=== PATIENT | female | born 1990 ===

== ENCOUNTER 2017-07-19 10:08 | Inpatient (IN) ==
[2017-07-19] MEDS ORDERED: MEPERIDINE 50 MG/1 ML VIAL IM PRN (10:42)
[2017-07-19] MEDS ORDERED: ONDANSETRON 4 MG/2 ML VIAL IV PRN ×2 (10:42→12:41)
[2017-07-19] MEDS ORDERED: LACTATED RINGERS 500 ML IV PRN (10:42)
[2017-07-19] MEDS ORDERED: BUTORPHANOL 1 MG/ML VIAL IV PRN (10:42)
[2017-07-19] MEDS ORDERED: LACTATED RINGERS 1,000 ML IV SCH (11:00)
[2017-07-19] MEDS ORDERED: OXYTOCIN/LR 20 UNIT/1,000 ML BAG IV SCH (11:00)
[2017-07-19 11:14] LABS: Basophils % 0.3 % (0.0-0.8); Eosinophils % 0.1 % (0.00-10.9); Hematocrit 37.6 VOL% (35.7-47.0); Hemoglobin 12.7 GM/DL (12.0-16.0); Immature Granulocytes % 0.5 %; Immature Granulocytes Absolute 0.05 #; Lymphocytes # 1.8 10*3/uL (1.4-4.0); Lymphocytes % 17.7 % (21.3-54.2); Mean Corpuscular HGB Conc 33.8 GM/DL (32-36); Mean Corpuscular Hemoglobin 32 PG (27-34); Mean Platelet Volume 10.9 FL (9.6-12.0); Monocytes # 0.5 10*3/uL (0.11-0.8); Monocytes % 4.8 % (1.7-12.7); Neutrophils # 7.8 10*3/uL (1.4-7.4); Neutrophils % 76.6 % (38.7-73.9); Platelet Count 247 T/CUMM (130-400); Red Cell Distribution Width 14.5 % (9.3-17.3); White Blood Count 10.1 T/CUMM (4-12)
[2017-07-19] MEDS ORDERED: miSOPROStol 200 MCG TABLET ONE (11:55)
[2017-07-19] MEDS ORDERED: IBUPROFEN 800 MG TABLET PO PRN (12:41)
[2017-07-19] MEDS ORDERED: OXYTOCIN/LR 20 UNIT/1,000 ML BAG IV ONE (12:41)
[2017-07-19] MEDS ORDERED: RHO(D) IMMUNE GLOBULIN 300 MCG SYRINGE IM ONE (12:41)
[2017-07-19] MEDS ORDERED: BISACODYL 10 MG SUPP RECTAL PRN (12:41)
[2017-07-19] MEDS ORDERED: HYDROCORTISONE 2.5% RECTAL CREAM 30 GM TUBE TOP PRN (12:41)
[2017-07-19] MEDS ORDERED: MEASLES/MUMPS/RUBELLA VACCINE 0.5 ML VIAL SUBCUT ONE (12:41)
[2017-07-19] MEDS ORDERED: ACETAMINOPHEN 325 MG TABLET PO PRN (12:41)
[2017-07-19] MEDS ORDERED: DIPH/TET/ACEL PERT BOOSTER VACCINE 0.5 ML VIAL IM ONE (12:41)
[2017-07-19] MEDS ORDERED: LANOLIN 50% CREAM 0.3 OZ TUBE TOP PRN (12:41)
[2017-07-19] MEDS ORDERED: WITCH HAZEL PADS 100/JAR TOP PRN (12:41)
[2017-07-19] MEDS ORDERED: oxyCODONE/ACETAMINOPHEN 5-325 MG TABLET PO PRN ×2 (12:41)
[2017-07-19] MEDS ORDERED: BENZOCAINE 20%/MENTHOL 0.5% SPRAY 56 GM CAN TOP PRN (12:41)
[2017-07-19] MEDS: DOCUSATE SODIUM 100 MG CAPSULE PO SCH (21:18)
[2017-07-20 05:30] LABS: Basophils % 0.3 % (0.0-0.8); Eosinophils % 0.2 % (0.00-10.9); Hematocrit 35.2 VOL% (35.7-47.0); Hemoglobin 11.9 GM/DL (12.0-16.0); Immature Granulocytes % 0.3 %; Immature Granulocytes Absolute 0.04 #; Lymphocytes % 16.7 % (21.3-54.2); Mean Corpuscular HGB Conc 33.8 GM/DL (32-36); Mean Corpuscular Hemoglobin 32 PG (27-34); Mean Corpuscular Volume 94.4 FL (87-102); Mean Platelet Volume 10.9 FL (9.6-12.0); Monocytes # 0.8 10*3/uL (0.11-0.8); Monocytes % 6.6 % (1.7-12.7); Neutrophils # 9.1 10*3/uL (1.4-7.4); Neutrophils % 75.9 % (38.7-73.9); Platelet Count 234 T/CUMM (130-400); Red Blood Count 3.73 MC/CUMM (3.8-5.5); Red Cell Distribution Width 14.6 % (9.3-17.3); White Blood Count 12.1 T/CUMM (4-12)
[2017-07-20] MEDS: DOCUSATE SODIUM 100 MG CAPSULE PO SCH ×2 (08:28→22:08)
[2017-07-21 07:13] VITALS: BP 129/71
[2017-07-21] MEDS: DOCUSATE SODIUM 100 MG CAPSULE PO SCH (08:56)
== END 2017-07-21 12:10 | disposition home or self-care (01) | DRG 775 ==
LOC: N.LDOUT 10:08 → N.LD 10:13 → N.OB 15:18
PROVIDERS: ADMIT Obstetrics & Gynecology; ATTEND Obstetrics & Gynecology

== ENCOUNTER 2022-06-07 06:02 | Inpatient (IN) ==
[2022-06-07 06:27] LABS: Bacteria,Urine Many /HPF (Few); Bilirubin,Urine Negative (Negative); Blood, Urine Moderate mg/dL (Negative); Glucose,Urine (UA) Negative (Negative); Ketones,Urine Negative (Negative); Mucus,Urine Occasional /LPF (Occasional); Nitrite,Urine Negative (Negative); Protein,Urine Negative (Negative); RBC,Urine 2 /HPF (0-4); Squamous Epithelial Cell,Urine Occasional /HPF (0-10); Urine Appearance Clear (Clear); Urine Color Yellow (Yellow)
[2022-06-07] MEDS ORDERED: miSOPROStoL 200 MCG TABLET ONE (06:51)
[2022-06-07] MEDS ORDERED: TRANEXAMIC ACID 1,000 MG/10 ML VIAL ONE (06:51)
[2022-06-07] MEDS ORDERED: METHYLERGONOVINE 0.2 MG/1 ML AMP ONE (06:52)
[2022-06-07] MEDS ORDERED: CARBOPROST TROMETHAMINE 250 MCG/ML AMP IM ONE (06:52)
[2022-06-07] MEDS ORDERED: SODIUM CHLORIDE 0.9% 0 ML IV ONE (06:52)
[2022-06-07] MEDS ORDERED: OXYTOCIN/LR 20 UNIT/1,000 ML BAG IV ONE ×3 (06:52→10:09)
[2022-06-07] MEDS ORDERED: AMPICILLIN INJ 2,000 MG in SODIUM CHLORIDE 0.9% 100 ML IV ONE (07:00)
[2022-06-07] MEDS ORDERED: BUTORPHANOL 2 MG/ML VIAL IV PRN (07:48)
[2022-06-07] MEDS ORDERED: TRANEXAMIC ACID 1,000 MG in SODIUM CHLORIDE 0.9% 100 ML IV PRN (07:48)
[2022-06-07] MEDS ORDERED: METHYLERGONOVINE 0.2 MG/1 ML AMP IM PRN (07:48)
[2022-06-07] MEDS ORDERED: MEPERIDINE 50 MG/1 ML VIAL IV PRN (07:48)
[2022-06-07] MEDS ORDERED: miSOPROStoL 200 MCG TABLET RECTAL PRN (07:48)
[2022-06-07] MEDS ORDERED: ONDANSETRON 4 MG/2 ML VIAL IV PRN ×2 (07:48→10:09)
[2022-06-07] MEDS ORDERED: CARBOPROST TROMETHAMINE 250 MCG/ML AMP IM PRN (07:48)
[2022-06-07] MEDS ORDERED: OXYTOCIN/LR 20 UNIT/1,000 ML BAG IV SCH (08:00)
[2022-06-07] MEDS ORDERED: LACTATED RINGERS 1,000 ML IV SCH (08:00)
[2022-06-07 08:03] LABS: Basophils % 0.3 % (0.0-0.8); Eosinophils # 0.1 10*3/uL (0.0-0.87); Eosinophils % 0.4 % (0.00-10.9); Hematocrit 37.9 VOL% (35.7-47.0); Hemoglobin 13.1 GM/DL (12.0-16.0); Immature Granulocytes % 0.5 %; Immature Granulocytes Absolute 0.06 #; Lymphocytes # 2.2 10*3/uL (1.4-4.0); Lymphocytes % 18.8 % (21.3-54.2); Mean Corpuscular HGB Conc 34.6 GM/DL (32-36); Mean Corpuscular Volume 97.4 FL (87-102); Mean Platelet Volume 11.3 FL (9.6-12.0); Monocytes # 0.7 10*3/uL (0.11-0.8); Platelet Count 276 T/CUMM (130-400); Red Blood Count 3.89 MC/CUMM (3.8-5.5); Red Cell Distribution Width 13.4 % (9.3-17.3); White Blood Count 11.6 T/CUMM (4-12)
[2022-06-07 08:26] LABS: Albumin 2.8 G/DL (3.4-5.0); Bilirubin,Total 0.4 MG/DL (0.20-1.00); Calcium 9.1 MG/DL (8.5-10.1); Osmolality,Calculated 276.5 MOS/KG (273-304); Potassium 3.6 MMOL/L (3.5-5.1); Total Protein 7.1 G/DL (6.4-8.2)
[2022-06-07] MEDS ORDERED: LIDOCAINE 1% 20 ML VIAL IM ONE (09:55)
[2022-06-07 10:06] LABS: Cord Arterial Blood HCO3 21.9 MMOL/L
[2022-06-07 10:08] LABS: Cord Venous Blood HCO3 22.7 MMOL/L; Cord Venous Blood PCO2 40.6 MMHG; Cord Venous Blood PO2 34.8
[2022-06-07] MEDS ORDERED: MEASLES/MUMPS/RUBELLA VACCINE 0.5 ML VIAL SUBCUT ONE (10:09)
[2022-06-07] MEDS ORDERED: ACETAMINOPHEN 325 MG TABLET PO PRN (10:09)
[2022-06-07] MEDS ORDERED: HYDROCORTISONE 2.5% RECTAL CREAM 30 GM TUBE TOP PRN (10:09)
[2022-06-07] MEDS ORDERED: BENZOCAINE 20%/MENTHOL 0.5% SPRAY 56 GM CAN TOP PRN (10:09)
[2022-06-07] MEDS ORDERED: BISACODYL 10 MG SUPP RECTAL PRN (10:09)
[2022-06-07] MEDS ORDERED: LANOLIN 50% CREAM 0.3 OZ TUBE TOP PRN (10:09)
[2022-06-07] MEDS ORDERED: DIPH/TET/ACEL PERT BOOSTER VACCINE 0.5 ML VIAL IM ONE (10:09)
[2022-06-07] MEDS ORDERED: oxyCODONE/ACETAMINOPHEN 5-325 MG TABLET PO PRN ×2 (10:09)
[2022-06-07] MEDS ORDERED: RHO(D) IMMUNE GLOBULIN 300 MCG SYRINGE IM ONE (10:09)
[2022-06-07] MEDS ORDERED: WITCH HAZEL PADS 100/JAR TOP PRN (10:09)
[2022-06-07] MEDS: IBUPROFEN 800 MG TABLET PO PRN (14:03)
[2022-06-07] MEDS: DOCUSATE SODIUM 100 MG CAPSULE PO SCH (21:13)
[2022-06-08] MEDS: IBUPROFEN 800 MG TABLET PO PRN ×2 (00:04→13:23)
[2022-06-08 06:03] LABS: Basophils % 0.4 % (0.0-0.8); Eosinophils # 0.1 10*3/uL (0.0-0.87); Eosinophils % 1.1 % (0.00-10.9); Hematocrit 31.4 VOL% (35.7-47.0); Hemoglobin 10.8 GM/DL (12.0-16.0); Immature Granulocytes % 0.4 %; Immature Granulocytes Absolute 0.04 #; Lymphocytes # 2.3 10*3/uL (1.4-4.0); Lymphocytes % 22.2 % (21.3-54.2); Mean Corpuscular HGB Conc 34.4 GM/DL (32-36); Mean Corpuscular Volume 97.8 FL (87-102); Mean Platelet Volume 10.4 FL (9.6-12.0); Monocytes # 0.7 10*3/uL (0.11-0.8); Monocytes % 6.6 % (1.7-12.7); Neutrophils % 69.3 % (38.7-73.9); Platelet Count 220 T/CUMM (130-400); Red Blood Count 3.21 MC/CUMM (3.8-5.5); Red Cell Distribution Width 13.4 % (9.3-17.3); White Blood Count 10.5 T/CUMM (4-12)
[2022-06-08] MEDS: DOCUSATE SODIUM 100 MG CAPSULE PO SCH ×2 (08:51→20:51)
[2022-06-08] MEDS: MULTIVITAMIN (PRENATAL) TABLET PO SCH (08:52)
[2022-06-08] MEDS ORDERED: MAGNESIUM HYDROXIDE SUSP 30 ML UDCUP PO PRN (13:43)
[2022-06-09 07:42] VITALS: BP 125/80
[2022-06-09] MEDS: DOCUSATE SODIUM 100 MG CAPSULE PO SCH (09:00)
[2022-06-09] MEDS: MULTIVITAMIN (PRENATAL) TABLET PO SCH (09:00)
== END 2022-06-09 12:00 | disposition home or self-care (01) | DRG 560 ==
LOC: N.LDOUT 06:02 → N.LD 06:04 → N.OB 11:50
PROVIDERS: ADMIT Obstetrics & Gynecology; ATTEND Obstetrics & Gynecology